=== PATIENT | male | born 1975 | race Caucasian/White ===

== ENCOUNTER 2020-03-24 14:30 | Emergency (ER) | payer MEDICAID ==
[~2020-03-24] VITALS: Ht 190.5 cm; Wt 95.3 kg
[2020-03-24 14:36] VITALS: Ht 190.5 cm; Wt 95.3 kg
[2020-03-24 17:23] LABS: BASOPHIL % 0.5 % (0.2-1.5); PLATELET COUNT 148 x10^3mcL (152-348)
[2020-03-24 17:30] LABS: RED CELL DISTRIBUTION WIDTH 14.7 % (12.1-16.2)
[2020-03-24 17:32] LABS: CALCIUM 8.8 mg/dL (8.5-10.1); CARBON DIOXIDE 27.9 mmol/L (21-32); CHLORIDE SERUM 106 mmol/L (98-107); CREATININE SERUM 1.1 mg/dL (0.7-1.3); GFR1 > 60 mL/min; GLUCOSE SERUM 105 mg/dL (74-106); POTASSIUM SERUM 4.3 mmol/L (3.5-5.1); SODIUM SERUM 143 mmol/L (136-145)
[2020-03-24 17:36] LABS: ALBUMIN 3.9 g/dL (3.4-5.0); ALKALINE PHOSPHATASE 87 U/L (46-116); ALT/SGPT 369 U/L (16-63); AST/SGOT 299 U/L (15-37); BILIRUBIN TOTAL 0.32 mg/dL (0.20-1.00); CHOLESTEROL 111 mg/dL (<200); MAGNESIUM 2.2 mg/dL (1.8-2.4); TOTAL PROTEIN, SERUM 7.2 g/dL (6.4-8.2)
[2020-03-24 17:37] LABS: HDL CHOLESTEROL 62 mg/dL (40-60)
[2020-03-24 17:48] LABS: rbc morphology (normal/abnorm) NORMAL (NORMAL)
[2020-03-24 20:12] VITALS: BP 130/89
== END 2020-03-24 20:12 | disposition home or self-care (01) ==
LOC: ED 14:30
PROVIDERS: Emergency Medicine
DX: R56.9 Unspecified convulsions (principal); F10.239 Alcohol dependence with withdrawal, unspecified
CPT/HCPCS: 36600; G0480; J2060; J3411; J3490; J7030

== ENCOUNTER 2020-06-07 16:15 | Emergency (ER) | payer SELFPAY ==
[~2020-06-07] VITALS: Ht 190.5 cm; Wt 95.3 kg
[2020-06-07 16:21] VITALS: Ht 190.5 cm; Wt 95.3 kg
[2020-06-07] MEDS ORDERED: MULTIPLE VITAMI1 T13 PO (17:37)
[2020-06-07] MEDS ORDERED: NARCAN4 MG (17:37)
[2020-06-07 17:55] VITALS: BP 119/80
== END 2020-06-07 17:55 | disposition home or self-care (01) ==
LOC: ED 16:15
DX: T40.601A Poisoning by unspecified narcotics, accidental (unintentional), initial encounter (principal); Y92.89 Other specified places as the place of occurrence of the external cause